=== PATIENT | male | born 1980 ===

== ENCOUNTER 2021-06-26 19:01 | Inpatient (IN) | payer MEDICAID ==
[~2021-06-26] VITALS: Ht 170.2 cm; Wt 101.9 kg
[2021-06-26] MEDS ORDERED: HALOPERIDOL LACTATE 5 MG/ML VIAL IM ONE (19:30)
[2021-06-26] MEDS ORDERED: LORazepam 2 MG/ML VIAL IM ONE (19:30)
[2021-06-26] MEDS ORDERED: DiphenhydrAMINE HCL 50 MG/ML VIAL IM ONE (19:30)
[2021-06-26] MEDS ORDERED: METF-960 PO (19:37)
[2021-06-26 20:02] LABS: BASOPHILS % (AUTO) 0.2 % (0.0-2.0); EOSINOPHILS % (AUTO) 0 % (1.0-6.0); HEMATOCRIT 49.7 % (41-53); LYMPHOCYTES # (AUTO) 0.5 K/uL (1.0-4.8); LYMPHOCYTES % (AUTO) 2.2 % (22.0-44.0); MEAN CORPUSCULAR HEMOGLOBIN 29.8 pg (26.0-34.0); MEAN CORPUSCULAR HGB CONC 34.2 G/dL (31.0-37.0); MEAN CORPUSCULAR VOLUME 87 fL (80-100); MONOCYTES # (AUTO) 1.2 K/uL (0.1-1.0); MONOCYTES % (AUTO) 5.5 % (2.0-9.0); NEUTROPHILS # (AUTO) 19.9 K/uL (1.8-7.7); PLATELET COUNT (AUTO) 277 K/uL (150-450); RED BLOOD CELL COUNT(AUTO) 5.72 MIL/uL (4.50-5.90); RED CELL DISTRIBUTION WIDTH 13.8 % (11.5-14.5)
[2021-06-26 20:08] LABS: NEUTROPHILS % (AUTO) 92.1 % (40.0-70.0)
[2021-06-26] MEDS ORDERED: LORazepam 2 MG TABLET PO PRN (20:15)
[2021-06-26] MEDS ORDERED: OLANZapine 5 MG RAPDIS TABLET PO PRN (20:15)
[2021-06-26] MEDS ORDERED: ZOLPIDEM TARTRATE 10 MG TABLET PO PRN (20:15)
[2021-06-26 20:16] LABS: ANION GAP 8 mmol/L (8-16); CALCIUM, TOTAL 9.2 mg/dL (8.8-10.5); CARBON DIOXIDE 27 mmol/L (22-29); CHLORIDE 103 mmol/L (98-107); CREATININE 1.61 mg/dL (0.60-1.30); GLOMERULAR FILTR. RATE CALC 48 mL/min (>60); GLUCOSE,RANDOM 110 mg/dL (70-110); POTASSIUM 3.7 mmol/L (3.5-5.1); SODIUM SERUM 138 mmol/L (136-145); UREA NITROGEN, BLOOD 14 mg/dL (7-18)
[2021-06-26 20:18] LABS: COVID AG,FIA SOURCE NASOPHARYNGEAL
[2021-06-26 20:22] LABS: ALANINE AMINOTRANSFERASE 38 U/L (12-78); ALBUMIN 3.9 g/dL (3.4-5.0); ALKALINE PHOSPHATASE 50 U/L (46-116); ASPARTATE AMINOTRANSFERASE 37 U/L (15-37); BILIRUBIN,TOTAL 0.9 mg/dL (0.1-1.0); TOTAL PROTEIN, SERUM 7.9 g/dL (6.4-8.2)
[2021-06-26 20:24] LABS: GLUCOMETER DEV NAME(LOC) ERT.5; GLUCOSE,POINT OF CARE 109 MG/DL (70-110)
[2021-06-26] MEDS ORDERED: SODIUM CHLORIDE 0.9% 1,000 ML IV ONE (21:00)
[2021-06-26] MEDS ORDERED: ACETAMINOPHEN 325 MG TABLET PO PRN (22:00)
[2021-06-26] MEDS ORDERED: LOPERAMIDE HCL 2 MG CAPSULE PO PRN (22:00)
[2021-06-26] MEDS ORDERED: MAG HYDROX/AL HYDROX/SIMETH ES 30 ML SUSPENSION UDCUP PO PRN (22:00)
[2021-06-26] MEDS ORDERED: TUBERCULIN, PURIFIED PROTEIN DERIVATIVE 5 TU/0.1 ML SYRINGE ID ONE (22:00)
[2021-06-26] MEDS ORDERED: GuaiFENesin/D-METHORPHAN [SUGAR-FREE] 200-20MG/10 ML SYRUP UDCUP PO PRN (22:00)
[2021-06-26] MEDS ORDERED: HydrOXYzine PAMOATE 50 MG CAPSULE PO PRN (22:00)
[2021-06-26] MEDS ORDERED: MAGNESIUM HYDROXIDE SUSPENSION 30 ML UDCUP PO PRN (22:00)
[2021-06-27 01:27] LABS: BASOPHILS % (AUTO) 0.3 % (0.0-2.0); EOSINOPHILS % (AUTO) 0 % (1.0-6.0); HEMATOCRIT 48.2 % (41-53); HEMOGLOBIN 16.4 g/dL (13.5-17.5); LYMPHOCYTES # (AUTO) 1.1 K/uL (1.0-4.8); LYMPHOCYTES % (AUTO) 6.5 % (22.0-44.0); MEAN CORPUSCULAR HEMOGLOBIN 29.9 pg (26.0-34.0); MEAN CORPUSCULAR HGB CONC 34.1 G/dL (31.0-37.0); MEAN CORPUSCULAR VOLUME 88 fL (80-100); MONOCYTES # (AUTO) 1.5 K/uL (0.1-1.0); MONOCYTES % (AUTO) 8.8 % (2.0-9.0); NEUTROPHILS # (AUTO) 13.9 K/uL (1.8-7.7); NEUTROPHILS % (AUTO) 84.4 % (40.0-70.0); PLATELET COUNT (AUTO) 246 K/uL (150-450); RED CELL DISTRIBUTION WIDTH 13.5 % (11.5-14.5)
[2021-06-27 04:19] VITALS: BP 144/96
[2021-06-27 06:29] LABS: HEMOGLOBIN A1C 5.2 % (3.8-5.6)
[2021-06-27 07:23] LABS: CHOL/HDL RATIO 4.9 (4.2-7.3); FREE T4 (FREE THYROXINE) 1.1 ng/dL (0.76-1.46); THYROID STIMULATING HORMONE 3.31 uIU/mL (0.36-3.74)
[2021-06-27 08:15] VITALS: BP 155/92
[2021-06-27] MEDS: OMEGA-3/DHA/EPA/FISH OIL 1,000 MG CAPSULE PO SCH (10:02)
[2021-06-27] MEDS: MULTIVITAMINS WITH MINERALS, THERAPEUTIC TABLET PO SCH (10:02)
[2021-06-27] MEDS: FOLIC ACID 1 MG TABLET PO SCH (10:03)
[2021-06-27] MEDS: NALTREXONE HCL 50 MG TABLET PO SCH (10:03)
[2021-06-27] MEDS: OLANZapine 5 MG RAPDIS TABLET PO SCH ×4 (10:03→21:37)
[2021-06-27] MEDS: THIAMINE 100 MG TABLET PO SCH ×2 (10:03→16:33)
[2021-06-27] MEDS ORDERED: GLUCAGON,HUMAN RECOMBINANT 1 MG VIAL IM PRN (12:00)
[2021-06-27] MEDS ORDERED: INSULIN LISPRO 100 UNITS/ML SQ PRN (12:00)
[2021-06-27] MEDS ORDERED: DEXTROSE 50%-WATER 25 GM/50 ML SYRINGE IVP PRN (12:15)
[2021-06-27 16:54] LABS: GLUCOMETER DEV NAME(LOC) 3E.C; GLUCOSE,POINT OF CARE 95 MG/DL (70-110)
[2021-06-27] MEDS: IBUPROFEN 600 MG TABLET PO PRN (17:24)
[2021-06-27 17:25] VITALS: BP 139/78
[2021-06-27] MEDS: MELATONIN 5 MG TABLET PO SCH (20:27)
[2021-06-28] MEDS: INSULIN LISPRO 100 UNITS/ML SQ PRN (06:39)
[2021-06-28 06:49] LABS: GLUCOMETER DEV NAME(LOC) 3E.C; GLUCOSE,POINT OF CARE 94 MG/DL (70-110)
[2021-06-28 06:58] LABS: ANION GAP 5 mmol/L (8-16); CALCIUM, TOTAL 8.8 mg/dL (8.8-10.5); CARBON DIOXIDE 27 mmol/L (22-29); CHLORIDE 103 mmol/L (98-107); CREATININE 1.08 mg/dL (0.60-1.30); GLOMERULAR FILTR. RATE CALC > 60 mL/min (>60); GLUCOSE,RANDOM 93 mg/dL (70-110); POTASSIUM 4.1 mmol/L (3.5-5.1); SODIUM SERUM 135 mmol/L (136-145); UREA NITROGEN, BLOOD 11 mg/dL (7-18)
[2021-06-28] MEDS: NALTREXONE HCL 50 MG TABLET PO SCH (07:50)
[2021-06-28] MEDS: THIAMINE 100 MG TABLET PO SCH ×2 (07:50→16:35)
[2021-06-28] MEDS: MULTIVITAMINS WITH MINERALS, THERAPEUTIC TABLET PO SCH (07:50)
[2021-06-28] MEDS: OMEGA-3/DHA/EPA/FISH OIL 1,000 MG CAPSULE PO SCH (07:50)
[2021-06-28] MEDS: FOLIC ACID 1 MG TABLET PO SCH (07:50)
[2021-06-28] MEDS: IBUPROFEN 600 MG TABLET PO PRN (07:50)
[2021-06-28] MEDS: OLANZapine 5 MG RAPDIS TABLET PO SCH ×3 (07:51→16:34)
[2021-06-28 08:15] VITALS: BP 148/80
[2021-06-28 16:00] VITALS: BP 136/84
[2021-06-28 16:51] LABS: GLUCOMETER DEV NAME(LOC) 3E.C; GLUCOSE,POINT OF CARE 92 MG/DL (70-110)
[2021-06-28] MEDS ORDERED: NALT50TA PO (19:26)
[2021-06-28] MEDS ORDERED: OLAN10TA26 PO (19:26)
[2021-06-28] MEDS ORDERED: MELA5TAB3 PO (19:26)
[2021-06-28] MEDS ORDERED: OMEG-135 PO (19:26)
[2021-06-28] MEDS ORDERED: OLANZapine 10 MG RAPDIS TABLET PO SCH (21:00)
[2021-06-28] MEDS: MELATONIN 5 MG TABLET PO SCH (21:32)
[2021-06-29 06:51] LABS: GLUCOMETER DEV NAME(LOC) 3E.I 2; GLUCOSE,POINT OF CARE 93 MG/DL (70-110)
[2021-06-29] MEDS: INSULIN LISPRO 100 UNITS/ML SQ PRN (06:52)
[2021-06-29] MEDS: NALTREXONE HCL 50 MG TABLET PO SCH (08:24)
[2021-06-29] MEDS: OMEGA-3/DHA/EPA/FISH OIL 1,000 MG CAPSULE PO SCH (08:24)
[2021-06-29] MEDS: FOLIC ACID 1 MG TABLET PO SCH (08:24)
[2021-06-29] MEDS: MULTIVITAMINS WITH MINERALS, THERAPEUTIC TABLET PO SCH (08:24)
[2021-06-29] MEDS: THIAMINE 100 MG TABLET PO SCH (08:24)
[2021-06-29 10:31] VITALS: BP 139/90
== END 2021-06-29 13:35 | disposition home or self-care (01) | DRG 750 ==
LOC: EMS 19:06 → 3EC 21:00 → 3EI 06-28 19:00
PROVIDERS: ADMIT Psychiatry & Neurology Psychiatry; ATTEND Psychiatry & Neurology Psychiatry
DX: F20.9 Schizophrenia, unspecified (principal); D72.829 Elevated white blood cell count, unspecified; E11.9 Type 2 diabetes mellitus without complications; Z20.822 Contact with and (suspected) exposure to COVID-19; E86.0 Dehydration; E07.9 Disorder of thyroid, unspecified; F10.959 Alcohol use, unspecified with alcohol-induced psychotic disorder, unspecified; F12.90 Cannabis use, unspecified, uncomplicated; F14.90 Cocaine use, unspecified, uncomplicated; F15.10 Other stimulant abuse, uncomplicated; Z65.3 Problems related to other legal circumstances; Z78.1 Physical restraint status; Z87.891 Personal history of nicotine dependence
CPT/HCPCS: 80048; 80053; 80061; 82962; 83036; 84439; 84443; 85025; 99291; A9575; G0480; J1200; J1630; J2060; J7030